=== PATIENT | female | born 1950 ===

== ENCOUNTER 2017-03-01 12:00 | Emergency (ER) | payer OTHER ==
[~2017-03-01] VITALS: Ht 160 cm; Wt 68.0 kg
[~2017-03-01 12:00] MED LIST: KEFLEX250 MG PO; SERAQUIL PO; SINGULAIR 10MG10 MG PO; ULTRACET PO
[2017-03-01] MEDS ORDERED: CLONAZEPAM0.5 MG (13:08)
== END 2017-03-01 22:26 | disposition home or self-care (01) ==
LOC: ER 12:00
DX: K52.9 Noninfective gastroenteritis and colitis, unspecified (principal)